=== PATIENT | female | born 1995 | race Caucasian/White ===

== ENCOUNTER 2024-11-21 06:29 | Emergency (ER) | payer BC ==
[~2024-11-21] VITALS: Ht 162.6 cm; Wt 60.3 kg
[2024-11-21 06:33] VITALS: PULSE 88; RESP 18; TEMP 98.1
[2024-11-21] MEDS ORDERED: MACROBID 100 M100 MG PO (07:36)
[2024-11-21 12:36] VITALS: BP 99/63; PULSE 88; RESP 18; TEMP 98.1; O2SAT 98
== END 2024-11-21 07:45 | disposition home or self-care (01) ==
LOC: FSED 07:11
DX: K59.00 Constipation, unspecified (principal); N39.0 Urinary tract infection, site not specified
CPT/HCPCS: 81003; 81025; 99283